=== PATIENT | female | born 1955 | race Caucasian/White ===

== ENCOUNTER → 2025-02-01 09:37 | Outpatient (REF) | payer MEDICARE, SELFPAY | LOC: RCS 09:37 | PROVIDERS: ATTENDING PHYSICIAN Internal Medicine Cardiovascular Disease; FAMILY PHYSICIAN Family Medicine | DX: I10 Essential (primary) hypertension (principal) | CPT/HCPCS: 93306 ==

== ENCOUNTER 2025-04-10 13:21 | Emergency (ER) | payer MEDICARE, SELFPAY ==
[2025-04-10 13:33] VITALS: BP 178/97
[2025-04-10 13:50] LABS: Hematocrit 33.4 % (37.0-47.0); Hemoglobin 11.1 g/dL (12.0-16.0); Mean Corp Hgb Conc. 33.2 g/dL (33.0-37.0); Mean Corpuscular Volume 94.9 fL (81.0-99.0); Nucleated Red Blood Cells % 0 %; Platelet Count 365 10^3/uL (130-400); Red Cell Dist. Width 13.3 % (11.5-14.5)
[2025-04-10 14:01] LABS: INR 0.94; PT 12.6 Sec (11.4-14.6)
[2025-04-10 14:04] LABS: ALT (SGPT) 19 U/L (0-35); AST (SGOT) 28 U/L (14-36); Albumin 4.9 g/dl (3.5-5.0); Alkaline Phosphatase 82 U/L (38-126); Blood Urea Nitrogen 22 mg/dl (7-17); Calcium 10.2 mg/dl (8.4-10.2); Carbon Dioxide 28 mmol/L (22-30); Chloride 98 mmol/L (98-107); Glucose 90 mg/dl (70-99); Potassium 4.0 mmol/L (3.5-5.1); Sodium 133 mmol/L (135-145); Total Protein 8.1 g/dl (6.3-8.2); eGFR > 60.00
[2025-04-10 14:15] LABS: Troponin I < 0.012 ng/ml
--- NOTE | 2025-04-10 15:07 | ED.GENMED ---
History of Present Illness
General
Chief Complaint: Cardiac Symptoms
Time Seen by Provider: 04/10/25 15:07
History of Present Illness
History of Present Illness:
FOCUSED PAST MEDICAL HISTORY
- High blood pressure, hypothyroidism, uses CPAP for JHOAN nightly
REVIEW OF OLD RECORDS
- No old records available for review in [facility]
Note:
CHIEF COMPLAINT(S)
Upper chest tightness since this morning.
HISTORY OF PRESENT ILLNESS
The patient is a 69-year-old female who presented to the emergency department with a chief complaint of right upper chest tightness. The symptoms began around 5:00 AM while she was at home and preparing breakfast. She describes the sensation as an
'odd feeling' in her upper chest, which is worsened by taking a deep breath. However, she reports no significant pain upon palpation of the chest. She has no history of similar symptoms.
The patient mentions that she woke up at 3:30 AM, which is usual for her starting her day. At the time of the interview, the patient was noted to have experienced some mild breathing discomfort but not significant shortness of breath. She denies any
recent vigorous activity and has not had any swelling in her legs. She confirms that she has been wearing compression socks.
The patient has a significant past medical history of hypertension and hypothyroidism, for which she takes medication. She also reported a urinary tract infection in the past that was followed by pneumonia in June, since which she has had a
cough. Despite this, her oxygen saturation levels remain between 97% to 99%. The nurse tells me the patient also had a recent long trip to [place].
PAST MEDICAL AND SURGICAL HISTORY
The patient has a history of hypertension and hypothyroidism. She also mentioned a urinary tract infection and pneumonia in June.
CHRONIC MEDICAL CONDITIONS SIGNIFICANTLY AFFECTING CARE
Hypertension and hypothyroidism.
SOCIAL HISTORY
The patient uses her CPAP device every night as instructed by her leg man to manage her respiratory health.
MEDICATIONS
The patient takes medication for hypothyroidism, specifically mentioning a dosage of seven and a half micrograms.
REVIEW OF SYSTEMS
- Respiratory: Reports mild breathing discomfort, no significant shortness of breath.
- Cardiovascular: Describes an odd feeling and tightness in the upper chest, particularly when taking a deep breath.
- Neurological: No dizziness or loss of consciousness reported.
- Musculoskeletal: No leg swelling, maintains use of compression socks.
PHYSICAL EXAM
General: Alert, no acute distress.
Skin: Warm, dry.
Head: Normocephalic, atraumatic.
Neck: Supple, trachea midline.
Eye, ears, mouth and throat: Oral mucosa moist.
Cardiovascular: Normal peripheral perfusion, no edema.
Respiratory: Mild crackles at the lung bases noted.
Gastrointestinal: Abdomen nondistended.
Back: Normal range of motion, normal alignment.
Musculoskeletal: Normal ROM, normal strength.
Neurological: Alert and oriented to person, place, time, and situation, no focal neurological deficit observed.
Psychiatric: Cooperative, appropriate mood & affect.
PROBLEM LIST
- Acute: Presentation of upper chest tightness.
- Chronic: Hypertension, hypothyroidism.
PLAN
1. Obtain a CT scan of the chest to evaluate for potential pulmonary embolism or other thoracic pathology.
2. Repeat cardiac tests as precautionary measures to exclude any cardiac causes of the chest tightness.
3. Monitor the patient�s vitals and oxygen levels closely.
DIFFERENTIAL DIAGNOSIS
The Differential Diagnosis includes, in no particular order and is not limited to:
1. Pulmonary embolism
2. Costochondritis
3. Acute coronary syndrome
4. Pneumonia
5. Gastroesophageal reflux disease
6. Musculoskeletal pain
7. Pleuritic chest pain
8. Aortic dissection
9. Panic attack
10. Interstitial lung disease
RADIOLOGY
- CTA chest obtained to evaluate for PE which was negative
EKG
- Sinus 81, nonspecific ST abnormality, no old to compare
LABS
- CBC unremarkable, chemistries unremarkable, troponin less than 0.012
SUMMARY OF ENCOUNTER
The patient, a 69-year-old female, presented to the emergency department with upper chest tightness. Cardiac blood work was performed twice, both sets were negative, ruling out a heart attack. A CT scan of the chest showed no blood clots in the
lungs. The radiologist reported minor atelectasis but no signs of pneumonia or any severe thoracic concerns. The patient complained of discomfort upon taking deep breaths, a symptom that began today and has not been experienced before. The patient
has a lengthy history of coughing following pneumonia in June. They were advised to use an incentive spirometer to encourage deep breathing and expand the lungs, reducing atelectasis. 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
difficulties in environments of altering altitudes such as flying.
DISPOSITION
Discharge
PLAN
1. Provide the patient with an incentive spirometer to encourage deep breathing exercises.
2. Advise the patient to routinely take deep breaths throughout the day to aid lung expansion.
3. Suggest follow-up with a leg man for further evaluation and management of any respiratory issues.
4. Ensure the patient receives a local pulmonologists contact information and instructions for follow-up as discussed during the ED visit.
INDEPENDENT REVIEW OF LABS AND INTERPRETATION OF TESTS
- My independent review of cardiac blood work is negative for any signs of myocardial infarction.
- My independent CT scan interpretation shows no pulmonary embolism and minor atelectasis but no pneumonia.
PATIENT EDUCATION AND COUNSELING
Educated the patient on the use of the incentive spirometer to assist with lung expansion and decrease atelectasis. Advised the patient about the importance of regular deep breathing exercises to prevent respiratory complications. Provided
reassurance regarding the absence of a heart attack or other acute thoracic conditions.
FOLLOW-UP INSTRUCTIONS
The patient is advised to follow up with a leg man for further evaluation of respiratory symptoms. Local leg man contact information will be provided upon discharge.
MEDICATION RECONCILIATION
No new medications were administered or prescribed during this visit.
MEDICAL DECISION MAKING
- Number and Complexity of Problems Addressed: Chronic conditions affecting care include hypertension, hypothyroidism. Differential diagnosis includes pulmonary embolism, costochondritis, acute coronary syndrome, pneumonia, gastroesophageal reflux
disease, musculoskeletal pain, pleuritic chest pain, aortic dissection, panic attack, and interstitial lung disease.
- Data:
- Category 1: Two sets of negative cardiac blood work. CT scan of the chest reviewed, indicating no pulmonary embolism or pneumonia, but minor atelectasis observed.
- Risk: Prescription medication was not considered necessary based on the evaluation and the absence of acute conditions.
DIAGNOSIS
- Atelectasis, unspecified (ICD-10: J98.11)
- Upper chest tightness, cause undetermined, likely musculoskeletal (ICD-10: R07.89)
UPDATE
- Pleuritic chest discomfort w/o significant SOB since 5am today
- Known to [facility]
- Initial trop after 8hrs of symptoms and EKG unremarkable
- Appears very comfortable
- CTA obtained which shows no PE
- Second troponin negative
- To use incentive spirometer as CT shows atelectasis
Phy Exam
Physical Exam
Physical Exam:
See HPI
Course
Orders/Labs/Results
Orders:
Orders
04/10/25 13:30
Electrocardiogram (*1) Urgent
Reason for Study: Chest Pain
EKG- Treatment ONCE
04/10/25 13:42
Complete Blood Count/With Diff Urgent
Comprehensive Metabolic Panel Urgent
Prothrombin Time Urgent
TSH Reflex To Free T4 Urgent
Comment: ADD ON
Troponin I Urgent
04/10/25 15:08
Add On- LAB Urgent
Tests Added?: tsh reflex fT4
04/10/25 15:25
CT Chest PE Study Urgent
Comment:
Reason For Exam: acute pleuritic chest pain
04/10/25 15:32
Troponin I Urgent
04/10/25 17:52
Incentive Spirometry [Rx Incentive Spirometry] [RESP] Urgent
Frequency: q1h while awake
Abnormal Lab Results
04/10/25
13:42
RBC 3.52 L 10^6/uL
(4.20-5.40)
Hgb 11.1 L g/dL
(12.0-16.0)
Hct 33.4 L %
(37.0-47.0)
MCH 31.5 H pg
(27.0-31.0)
Absolute Neuts (auto) 7.0 H 10^3/uL
(1.4-6.5)
Absolute Monos (auto) 0.7 H 10^3/uL
(0.1-0.6)
Sodium 133 L mmol/L
(135-145)
BUN 22 H mg/dl
(7-17)
04/10/25 13:42
04/10/25 13:42
Vital Signs
Initial and Last Documented VS:
Initial Vital Signs
Temp Pulse Resp BP Pulse Ox
36.6 C 83 18 178/97 98
04/10/25 13:33 04/10/25 13:33 04/10/25 13:33 04/10/25 13:33 04/10/25 13:33
Last Documented Vital Signs
Temp Pulse Resp BP Pulse Ox
36.6 C 98 25 149/74 96
04/10/25 13:33 04/10/25 18:00 04/10/25 18:00 04/10/25 16:00 04/10/25 16:30
*Pulse Oximetry
SaO2: 98
Oxygen Mode of Delivery: Room air
Patient hypoxic: no
*Critical Care Note
Total Time (30-74mins, 75-104mins- exclusive of procedures): Not Applicable
ED Attending Note
-
Portions of this chart may have been created with voice recognition software.� Occasional wrong word or��sound alike� substitutions may have occurred due to the inherent limitations of voice recognition software.
Discharge Plan
Departure
Patient Disposition: Home (Routine Discharge)
Date of Disposition: 04/10/25
Time of Disposition: 17:54
Patient with high blood pressure during this ER visit?: Yes
Discharge Problem:
Chest pain
Instructions: Atelectasis, Chest Pain DCA Follow Up, BLOOD PRESSURE
Referrals:
Helio Phipps MD [Active, Pulmonary Medicine]
Nila Mehta MD [Family Provider, Family Practice]
Kale Wing MD [Active, Cardiology]
Activity Restrictions/Additional Instructions:
The CAT scan shows no sign of blood clot. It does show some degree of atelectasis. You could use the incentive spirometer multiple times per day to help exercise your lungs. Basic blood work is normal. 2 cardiac blood test showed no sign of
heart attack. You could also follow-up with Dr. Wing. Return if worse or other concerns.
Interventions
Interventions:
*Risk Screen - Suicide Last Done: 04/10/25 13:33
*General Assessment Last Done: 04/10/25 13:33
*Neglect/Abuse Screening Last Done: 04/10/25 13:33
*ED COVID-19 Vaccine History Last Done: 04/10/25 15:19
*ED Influenza Vaccine History Last Done: 04/10/25 15:19
*Nursing Disposition Last Done: 04/10/25 19:26
ED- Pulmonary Assessment Last Done: 04/10/25 16:28
ED- Cardiac Assessment Last Done: 04/10/25 16:28
Discharge Date and Time
Discharge Date/Time: 04/10/25 19:28
Print Language: CITIZEN OF [place]
[2025-04-10 15:17] VITALS: BP 143/73
[2025-04-10 15:18] VITALS: BMI 25.9
[2025-04-10 15:19] VITALS: BP 143/73
[2025-04-10 16:00] VITALS: BP 149/74
[2025-04-10 16:09] LABS: Troponin I < 0.012 ng/ml
== END 2025-04-10 19:28 | disposition home or self-care (01) ==
LOC: EMR 13:21
PROVIDERS: Emergency Medicine; EMERGENCY PHYSICIAN Emergency Medicine; FAMILY PHYSICIAN Family Medicine
DX: R07.89 Other chest pain (principal); E03.9 Hypothyroidism, unspecified; I10 Essential (primary) hypertension; G47.33 Obstructive sleep apnea (adult) (pediatric); Z87.01 Personal history of pneumonia (recurrent)
CPT/HCPCS: 99284; 71275; 80053; 84443; 84484; 85025; 85610; 93005; Q9967